=== PATIENT | male | born 1950 | race African-American/Black ===

== ENCOUNTER 2016-12-04 09:59 | Emergency (ER) | payer OTHER ==
[~2016-12-04] VITALS: Ht 182.9 cm; Wt 92.7 kg
[~2016-12-04 09:59] MED LIST: ASPI-556 PO; HYDR25TA PO
[2016-12-04] MEDS ORDERED: INDOMETHACIN 25 MG CAPSULE PO ONE (11:45)
[2016-12-04 12:50] VITALS: BP 158/81
== END 2016-12-04 12:52 | disposition home or self-care (01) ==
LOC: EMS 10:00
DX: M10.9 Gout, unspecified (principal); I10 Essential (primary) hypertension; Z79.82 Long term (current) use of aspirin
CPT/HCPCS: 99284

== ENCOUNTER 2016-12-20 08:45 | Emergency (ER) | payer OTHER ==
[~2016-12-20] VITALS: Ht 185.4 cm; Wt 100.0 kg
[2016-12-20 09:01] LABS: GLUCOSE,POINT OF CARE 169 MG/DL (70-110)
[2016-12-20] MEDS ORDERED: INDO50 PO (09:03)
[2016-12-20 10:12] LABS: BASOPHILS % (AUTO) 0.2 % (0.0-2.0); EOSINOPHILS % (AUTO) 2.5 % (1.0-6.0); HEMATOCRIT 45.3 % (41-53); HEMOGLOBIN 15.1 g/dL (13.5-17.5); LYMPHOCYTES # (AUTO) 0.7 K/uL (1.0-4.8); LYMPHOCYTES % (AUTO) 18.8 % (22.0-44.0); MEAN CORPUSCULAR HEMOGLOBIN 29.4 pg (26.0-34.0); MEAN CORPUSCULAR HGB CONC 33.4 G/dL (31.0-37.0); MEAN CORPUSCULAR VOLUME 88 fL (80-100); MONOCYTES # (AUTO) 0.3 K/uL (0.1-1.0); MONOCYTES % (AUTO) 9.3 % (2.0-9.0); NEUTROPHILS # (AUTO) 2.5 K/uL (1.8-7.7); NEUTROPHILS % (AUTO) 69.2 % (40.0-70.0); PLATELET COUNT (AUTO) 199 K/uL (150-450); RED BLOOD CELL COUNT(AUTO) 5.14 MIL/uL (4.50-5.90); RED CELL DISTRIBUTION WIDTH 12.9 % (11.5-14.5); WHITE BLOOD COUNT (AUTO) 3.6 K/uL (4.5-11.0)
[2016-12-20 10:16] LABS: ANION GAP 10 mmol/L (8-16); CARBON DIOXIDE 29 mmol/L (22-29); CHLORIDE 105 mmol/L (98-107); CREATININE 0.84 mg/dL (0.60-1.30); SODIUM SERUM 144 mmol/L (136-145); UREA NITROGEN, BLOOD 20 mg/dL (7-18)
[2016-12-20 10:17] LABS: CALCIUM, TOTAL 9.1 mg/dL (8.8-10.5); GLOMERULAR FILTR. RATE CALC > 60 mL/min (>60)
[2016-12-20 10:22] LABS: PROTHROMBIN TIME 10.7 SEC (9.4-11.6)
[2016-12-20 10:38] LABS: ALANINE AMINOTRANSFERASE 44 U/L (12-78); ALBUMIN 3.8 g/dL (3.4-5.0); ASPARTATE AMINOTRANSFERASE 24 U/L (15-37); BILIRUBIN,TOTAL 0.3 mg/dL (0.1-1.0); CREATINE KINASE MB 8.7 ng/mL (0-5); CREATINE KINASE, TOTAL 534 U/L (39-308); TOTAL PROTEIN, SERUM 7.6 g/dL (6.4-8.2)
[2016-12-20 10:40] LABS: B-TYPE NATRIURETIC PEPTIDE < 5 pg/mL (0-100)
[2016-12-20] MEDS ORDERED: SODIUM CHLORIDE 0.9% 1,000 ML IV ONE (10:45)
[2016-12-20] MEDS ORDERED: POTASSIUM CHLORIDE 20 MEQ ER TABLET PO ONE (10:45)
[2016-12-20 10:46] LABS: APPEARANCE,URINE CLEAR (CLEAR); GLUCOSE, URINE (UA) NEGATIVE (NEGATIVE); KETONES,URINE NEGATIVE (NEGATIVE); LEUKOCYTE ESTERASE ,URINE NEGATIVE (NEGATIVE); OCCULT BLOOD,URINE SMALL (NEGATIVE); PH,URINE 5.5 (5.0-8.0); PROTEIN,URINE SEE CONFIRM (NEGATIVE)
[2016-12-20 10:47] LABS: ADD UA MICROSCOPIC YES
[2016-12-20 10:49] LABS: SULFOSALICYLIC ACID,URINE 3+ (Negative)
[2016-12-20 10:50] LABS: FINE GRANULAR CASTS,URINE 0-2 /LPF (None Seen); HYALINE CASTS, URINE 0-2 /LPF (None Seen); RBC,URINE 0-2 /HPF (0-2); SQUAMOUS EPITHELIAL CELL,UR Rare /LPF (None Seen); WBC,URINE 0-2 /HPF (0-5)
[2016-12-20] MEDS: POTASSIUM CHL 10 MEQ/WATER 50 ML IV SCH ×2 (11:02→11:32)
[2016-12-20 12:43] LABS: RBC MORPHOLOGY COMMENT NORMAL RBC MORPH
[2016-12-20 12:56] VITALS: BP 127/89
== END 2016-12-20 13:01 | disposition home or self-care (01) ==
LOC: EMS 08:46
DX: E86.0 Dehydration (principal); E87.6 Hypokalemia; I10 Essential (primary) hypertension; Z79.82 Long term (current) use of aspirin
CPT/HCPCS: 36415; 70450; 71010; 80053; 81001; 81002; 82550; 82553; 82962; 83880; 84484; 85025; 85610; 85730; 93005; 96360; 96361; 99285; J3480; J7030

== ENCOUNTER 2017-06-14 23:02 | Emergency (ER) | payer OTHER ==
[~2017-06-14] VITALS: Ht 182.9 cm; Wt 92.7 kg
[~2017-06-14 23:02] MED LIST changes: +INDO50 PO
[2017-06-14 23:13] VITALS: BP 148/89
== END 2017-06-14 23:40 | disposition left against medical advice (07) ==
LOC: EMS 23:03
DX: R42 Dizziness and giddiness (principal)

== ENCOUNTER → 2018-07-28 | Emergency (ER) | payer MEDICARE, OTHER ==
[~2018-07-28] VITALS: Ht 182.9 cm; Wt 93.2 kg
[~2018-07-28] MED LIST changes: -INDO50 PO
[2018-07-28 10:08] VITALS: BP 166/117
== END | disposition home or self-care (01) ==
LOC: EMS 10:05
DX: K59.00 Constipation, unspecified (principal); I10 Essential (primary) hypertension
CPT/HCPCS: 99283

== ENCOUNTER 2018-08-06 08:59 | Emergency (ER) | payer MEDICARE ==
[~2018-08-06] VITALS: Ht 182.9 cm; Wt 92.7 kg
[2018-08-06 11:01] LABS: BASOPHILS % (AUTO) 0.9 % (0.0-2.0); EOSINOPHILS % (AUTO) 9.6 % (1.0-6.0); HEMATOCRIT 44.4 % (41-53); HEMOGLOBIN 15.5 g/dL (13.5-17.5); LYMPHOCYTES # (AUTO) 1.2 K/uL (1.0-4.8); LYMPHOCYTES % (AUTO) 29.8 % (22.0-44.0); MEAN CORPUSCULAR HEMOGLOBIN 30.4 pg (26.0-34.0); MEAN CORPUSCULAR HGB CONC 34.9 G/dL (31.0-37.0); MEAN CORPUSCULAR VOLUME 87 fL (80-100); MONOCYTES # (AUTO) 0.4 K/uL (0.1-1.0); MONOCYTES % (AUTO) 10.8 % (2.0-9.0); NEUTROPHILS % (AUTO) 48.9 % (40.0-70.0); PLATELET COUNT (AUTO) 209 K/uL (150-450); RED BLOOD CELL COUNT(AUTO) 5.09 MIL/uL (4.50-5.90)
[2018-08-06 11:17] LABS: ANION GAP 8 mmol/L (8-16); CALCIUM, TOTAL 9.4 mg/dL (8.8-10.5); CARBON DIOXIDE 29 mmol/L (22-29); CHLORIDE 103 mmol/L (98-107); CREATININE 0.74 mg/dL (0.60-1.30); GLOMERULAR FILTR. RATE CALC > 60 mL/min (>60); GLUCOSE,RANDOM 112 mg/dL (70-110); POTASSIUM 3.7 mmol/L (3.5-5.1); SODIUM SERUM 140 mmol/L (136-145); UREA NITROGEN, BLOOD 12 mg/dL (7-18)
[2018-08-06 11:23] LABS: ALANINE AMINOTRANSFERASE 35 U/L (12-78); ALKALINE PHOSPHATASE 66 U/L (46-116); ASPARTATE AMINOTRANSFERASE 23 U/L (15-37); BILIRUBIN,TOTAL 0.4 mg/dL (0.1-1.0)
[2018-08-06 12:45] VITALS: BP 132/82
== END 2018-08-06 12:50 | disposition home or self-care (01) ==
LOC: EMS 09:01
DX: K59.00 Constipation, unspecified (principal); I10 Essential (primary) hypertension; M10.9 Gout, unspecified
CPT/HCPCS: 99284

== ENCOUNTER 2018-08-22 07:49 | Emergency (ER) | payer MEDICARE ==
[~2018-08-22] VITALS: Ht 182.9 cm; Wt 90.9 kg
[2018-08-22 08:59] VITALS: BP 135/100
[2018-08-22] MEDS ORDERED: ACYCLOVIR 200 MG CAPSULE PO ONE (09:45)
[2018-08-22] MEDS ORDERED: PredniSONE 20 MG TABLET PO ONE (09:45)
== END 2018-08-22 09:47 | disposition home or self-care (01) ==
LOC: EMS 07:50
DX: B02.9 Zoster without complications (principal); M79.632 Pain in left forearm; I10 Essential (primary) hypertension
CPT/HCPCS: 99283; J7512

== ENCOUNTER 2020-01-19 00:08 | Emergency (ER) | payer MEDICARE ==
[~2020-01-19] VITALS: Ht 182.9 cm; Wt 91.4 kg
[2020-01-19] MEDS ORDERED: DiphenhydrAMINE HCL 25 MG CAPSULE PO ONE (01:00)
[2020-01-19 01:34] VITALS: BP 145/98
== END 2020-01-19 01:55 | disposition home or self-care (01) ==
LOC: EMS 00:08
DX: T78.40XA Allergy, unspecified, initial encounter (principal); F41.9 Anxiety disorder, unspecified; I10 Essential (primary) hypertension; X58.XXXA Exposure to other specified factors, initial encounter

== ENCOUNTER 2020-01-19 20:23 | Emergency (ER) | payer MEDICARE ==
[~2020-01-19] VITALS: Ht 182.9 cm; Wt 93.2 kg
[2020-01-19 21:27] LABS: GLUCOSE,POINT OF CARE 90 MG/DL (70-110)
[2020-01-19 21:44] VITALS: BP 152/89
== END 2020-01-19 21:47 | disposition home or self-care (01) ==
LOC: EMS 20:25
DX: I10 Essential (primary) hypertension (principal)
CPT/HCPCS: 82948; 93005

== ENCOUNTER 2020-01-20 09:44 | Emergency (ER) | payer MEDICARE ==
[~2020-01-20] VITALS: Ht 182.9 cm; Wt 92.7 kg
[2020-01-20 09:45] VITALS: BP 178/106
[2020-01-20 11:40] LABS: GLUCOSE,POINT OF CARE 128 MG/DL (70-110)
== END 2020-01-20 10:38 | disposition home or self-care (01) ==
LOC: EMS 09:44
DX: I10 Essential (primary) hypertension (principal); R42 Dizziness and giddiness

== ENCOUNTER 2025-08-28 11:53 | Emergency (ER) | payer MEDICARE, OTHER ==
[~2025-08-28] VITALS: Ht 182.9 cm; Wt 84.1 kg
[2025-08-28 11:58] VITALS: TEMP 97.5
[2025-08-28 12:26] LABS: PLATELET COUNT (AUTO) 205 K/uL (150-450); RED BLOOD CELL COUNT(AUTO) 4.93 MIL/uL (4.50-5.90); RED CELL DISTRIBUTION WIDTH 12.9 % (11.5-14.5); WHITE BLOOD COUNT (AUTO) 3.9 K/uL (4.5-11.0)
[2025-08-28 12:32] LABS: CALCIUM, TOTAL 8.8 mg/dL (8.8-10.5); CREATININE 0.63 mg/dL (0.60-1.30); GLOMERULAR FILTR. RATE CALC > 60 mL/min (>60); GLUCOSE,RANDOM 103 mg/dL (70-110); SODIUM SERUM 139 mmol/L (136-145); UREA NITROGEN, BLOOD 12 mg/dL (7-18)
[2025-08-28 12:39] LABS: TROPONIN I-HIGH SENSITIVITY 6 ng/L (<76)
[2025-08-28 15:00] VITALS: BP 161/88; PULSE 80; RESP 18; O2SAT 97
== END 2025-08-28 15:20 | disposition left against medical advice (07) ==
LOC: EMS 11:54
DX: R07.89 Other chest pain (principal); R42 Dizziness and giddiness; I11.9 Hypertensive heart disease without heart failure; M10.9 Gout, unspecified
CPT/HCPCS: 71045; 80048; 84484; 85025; 93005; 99285; 36415-L1; 36415-TC